=== PATIENT | male | born 1985 | race Caucasian/White ===

== ENCOUNTER 2025-03-31 17:13 | Inpatient (IN) | payer SELFPAY ==
[2025-03-31] MEDS ORDERED: Ketorolac Tromethamine 30 MG (1 mL) VIAL ONE (21:22)
[2025-03-31] MEDS ORDERED: HYDROcodone/Acetaminophen 5/325 mg Tablet ONE (21:23)
[2025-03-31 22:09] VITALS: BMI 25.7
[2025-03-31] MEDS ORDERED: Acetaminophen 325 MG TAB PO PRN (22:15)
[2025-03-31] MEDS ORDERED: Ondansetron PF 4 MG/2 ML Vial IVP PRN (22:15)
[2025-04-01 08:46] LABS: #Basophils 0.11 10x3/uL (0.0-0.2); #Eosinophils 0.14 10x3/uL (0.0-0.7); #Monocytes 0.65 10x3/uL (0.11-0.59); #Neutrophils 5.34 10x3/uL (1.40-6.50); %Basophils 1.3 % (0.0-1.0); %Eosinophils 1.6 % (0.0-10.0); %Lymphocytes 27.5 % (21.0-51.0); %Monocytes 7.5 % (0.0-10.0); %Neutrophils 61.9 % (42.0-75.0); Hematocrit 49.3 % (42.0-52.0); Hemoglobin 15.7 g/dL (14.0-18.0); Mean Corpuscular Hemoglobin 30.8 pg (27.0-31.0); Mean Corpuscular Volume 96.9 fL (78.0-98.0); Platelet Count 266 10x3/uL (130-400); Red Blood Cell (RBC) Count 5.09 mill/uL (4.70-6.10); White Blood Cell (WBC) Count 8.63 10x3/uL (4.8-10.8)
[2025-04-01 09:06] LABS: Anion Gap 12 mmol/L (10-20); BUN (Urea Nitrogen) 13 mg/dL (8.9-20.6); Calc. Creatinine Clearance 108 mL/min (70-130); Calcium 8.9 mg/dL (7.8-10.44); Carbon Dioxide 29 mmol/L (22-29); Chloride 101 mmol/L (98-107); Glucose 94 mg/dL (70-105); Potassium 3.8 mmol/L (3.5-5.1); Sodium 138 mmol/L (136-145)
[2025-04-01] MEDS ORDERED: CEFAZOLIN 2 GM VIAL ONE (15:00)
[2025-04-01] MEDS ORDERED: Famotidine/PF 20 mg/2ml Vial ONE (16:04)
[2025-04-01] MEDS ORDERED: Ketamine In 0.9 % NaCl 50 MG/5 ML SYRINGE ONE (16:10)
[2025-04-01] MEDS ORDERED: PROPOFOL 20 ML ONE ×2 (16:10→17:49)
[2025-04-01] MEDS ORDERED: fentaNYL PF 100 MCG/2 ML SYRINGE ONE ×2 (16:10→17:56)
[2025-04-01] MEDS ORDERED: Lidocaine 1% PF 5 ML VIAL ONE (16:12)
[2025-04-01] MEDS ORDERED: Glycopyrrolate 0.2 MG/ML 5 ML SYRINGE ONE (16:12)
[2025-04-01] MEDS ORDERED: Ondansetron PF 4 MG/2 ML Vial ONE (16:43)
[2025-04-01] MEDS ORDERED: PHENYLEPHRINE-NS 100 MCG/ML 10 ML SYRINGE ONE (16:51)
[2025-04-01] MEDS: HYDROcodone/Acetaminophen 5/325 mg Tablet PO PRN (23:17)
[2025-04-02 08:22] VITALS: TEMP 97.8
[2025-04-02 11:45] VITALS: BP 106/69
[2025-04-02] MEDS ORDERED: Acetaminophen/Codeine 30-300mg Tablet PO PRN (12:18)
[2025-04-02] MEDS: Acetaminophen/Codeine 30-300mg Tablet PO PRN (13:20)
[2025-04-03] MEDS ORDERED: HYDROcodone/Acetaminophen 5/325 mg Tablet PO PRN (10:28)
== END 2025-04-02 14:50 | disposition home or self-care (01) | DRG 496 ==
LOC: ERS 17:13 → T4-A 19:47
PROVIDERS: ADMIT Orthopaedic Surgery; ATTEND Orthopaedic Surgery
PROC: 0PSH04Z Reposition Right Radius with Internal Fixation Device, Open Approach (ICD-10-PCS; principal; 2025-03-31)
PROC: 0PPH04Z Removal of Internal Fixation Device from Right Radius, Open Approach (ICD-10-PCS; 2025-03-31)
PROC: 3E03329 Introduction of Other Anti-infective into Peripheral Vein, Percutaneous Approach (ICD-10-PCS; 2025-03-31)
DX: S52.501A Unspecified fracture of the lower end of right radius, initial encounter for closed fracture (principal); I31.39 Other pericardial effusion (noninflammatory); M97.41XA Periprosthetic fracture around internal prosthetic right elbow joint, initial encounter; N17.9 Acute kidney failure, unspecified; N39.0 Urinary tract infection, site not specified; I48.92 Unspecified atrial flutter; F10.90 Alcohol use, unspecified, uncomplicated; I10 Essential (primary) hypertension; E78.5 Hyperlipidemia, unspecified; Z21 Asymptomatic human immunodeficiency virus [HIV] infection status; F17.210 Nicotine dependence, cigarettes, uncomplicated; F17.290 Nicotine dependence, other tobacco product, uncomplicated; W19.XXXA Unspecified fall, initial encounter; Z98.890 Other specified postprocedural states; Z79.899 Other long term (current) drug therapy; Z79.84 Long term (current) use of oral hypoglycemic drugs; Z79.01 Long term (current) use of anticoagulants
CPT/HCPCS: 29125; 36415; 80048; 85025; 96372; 99284; C1713; J0169; J0665; J1100; J1885; J2250; J2704; J3490